=== PATIENT | male | born 1940 | race Caucasian/White ===

== ENCOUNTER 2017-01-02 10:58 | Outpatient (CLI) | payer MEDICARE, BC ==
[~2017-01-02] VITALS: Ht 175.3 cm; Wt 75.0 kg
--- NOTE | ~2017-01-02 | HEMODYNAMI ---
PATIENT:DANICA OWENS MEDICAL RECORD: [id number] : 36 LOCATION:D.CAT ADMISSION DATE: 01/02/17 Generatedon:01/02/201713:28 Patient name: DANICA OWENS Patient #: [id number] SSN: : 1940 Date of study: 01/02/2017 Page: Of Hemodynamic Procedure Report Patient Data Patient Demographics Procedure consent was obtained First Name: DANICA Gender: Male Last Name: ROMAN : 1940 Middle Initial: R Age: 76 year(s) Patient #: [id number] Race: Unknown Additional ID: [id number] Contact details [address]: [address] [place] [address] State: [place] City: [place] Zip code: [address] Admission Admission Data Admission Date: 01/02/2017 Admission Time: 10:58 Procedure Procedure Types Cath Procedure Miscellaneous Procedures Moderate Sedation up to 15 minutes Peripheral Cath Diagnostic Procedure Abd/Extremity Aortagram Procedure Description Procedure Date Procedure Date: 01/02/2017 Procedure Start Time: 13:12 Procedure End Time: 13:28 Procedure Staff Name Function Bladimir Herndon MD Performing Physician Victor Hugo Oreilly RT Scrub Nery Marcos RN Nurse Vick Avitia RT Monitor Procedure Data Cath Procedure Fluoroscopy Diagnostic fluoroscopy Total fluoroscopy Time: 2.1 time: 2.1 min min Diagnostic fluoroscopy Total fluoroscopy dose: 256 dose: 256 mGy mGy Contrast Material Contrast Material Type Amount (ml) Isovue 300 90 Entry Location Entry Primary Successful Side Size Upsize Upsize Entry Closure Succes sful Closure Location (Fr) 1 (Fr) 2 (Fr) Remarks Device Remarks Femoral Right 5 Fr Exoseal artery Estimated blood loss: 10 ml Diagnostic catheters Device Type Used For End Catheter Placement Diagnostic Infinity 5Fr Procedure Pigtail catheter Procedure Complications No complications Procedure Medications Medication Administration Route Dosage Oxygen NC 2 l/min Heparin Flush Bag added to field 2 bags (1000units/500ml NS) Lidocaine 2% added to field 20 Versed I.V. 1 mg Fentanyl I.V. 50 mcg Versed I.V. 0.5 mg Fentanyl I.V. 25 mcg Versed I.V. 0.5 mg Fentanyl I.V. 25 mcg Hemodynamics Rest Heart Rate: 63 (bpm) Snapshots Pre Cath Intra NCS Post Cath Vital Signs Time Heart Resp SPO2 NIBP (mmHg) Rhythm Pain Sedation Rate (ipm) (%) Status Level (bpm) 12:54:28 59 14 98 131/84(115) SB 0 (11) 10(A) , No pain 12:59:27 60 15 98 Measuring SB 0 (11) 10(A) , No pain 12:59:35 57 16 98 162/90(144) SB 0 (11) 10(A) , No pain 13:03:47 57 14 98 144/84(128) SB 0 (11) 10(A) , No pain 13:07:59 61 14 98 124/84(109) SB 0 (11) 10(A) , No pain 13:12:07 57 16 99 129/81(115) SB 0 (11) 9(A) , No pain 13:16:15 70 16 96 139/87(122) SB 0 (11) 9(A) , No pain 13:20:31 60 19 97 129/70(104) SB 0 (11) 9(A) , No pain 13:23:21 59 17 98 141/82(120) SB 0 (11) 9(A) , No pain 13:27:35 60 10 98 132/80(110) SB 0 (11) 9(A) , No pain Medications Time Medication Route Dose Verified Delivered Reason Notes Effec tiveness by by 12:53:44 Oxygen NC 2 Bladimir Nery Per l/min Yanick Marcos RN physician 12:53:52 Heparin Flush added 2 Bladimir Bladimir used for Bag to bags Yanick Herndon MD procedure (1000units/500ml field NS) 12:53:59 Lidocaine 2% added 20ml Bladimir Bladimir used for to vial Yanick Herndon MD procedure field 13:04:10 Versed I.V. 1 mg Bladimir Nery for Yanick Marcos RN sedation 13:04:17 Fentanyl I.V. 50 Bladimir Nery for mcg Yanick Marcos RN sedation 13:06:32 Versed I.V. 0.5 Bladimir Nery for mg Yanick Marcos RN sedation 13:06:40 Fentanyl I.V. 25 Bladimir Nery for mcg Yanick Marcos RN sedation 13:08:54 Versed I.V. 0.5 Bladimir Nery for mg Yanick Marcos RN sedation 13:09:00 Fentanyl I.V. 25 Bladimir Nery for mcg Yanick Marcos RN sedation Procedure Log Time Note 12:29:49 ACC Patient presents with No angina; no symptoms CCS Anginal Class 2--Slight limitation of ordinary activity. 12:29:58 Diagnostic Cath status Elective 12:30:04 Victor Hugo Oreilly RT(R) sent for patient. Start room use. 12:30:07 Time tracking: Regular hours 12:30:10 Plan of Care:Hemodynamics will remain stable., Cardiac rhythm will remain stable., Comfort level will be maintained., Respiratory function will remain adequate., Patient/ family verbilizes understanding of procedure., Procedure tolerated without complication., Recovers from procedure without complications.. 12:46:46 Patient received from Pre/Post Procedure Room to [facility] 2 Alert and oriented. Tansferred to table in Supine position. 12:46:47 Warm blankets applied, and jose luis hugger turned on for patient comfort. 12:46:47 Correct patient and procedure confirmed by team. 12:46:48 Signed procedure consent form obtained from patient. 12:46:49 ECG and BP/O2 sat monitors applied to patient. 12:53:34 Vital chart was started 12:53:44 Oxygen 2 l/min NC was administered by Nery Marcos RN; Per physician; 12:53:52 Heparin Flush Bag (1000units/500ml NS) 2 bags added to field was administered by Bladimir Herndon MD; used for procedure; 12:53:59 Lidocaine 2% 20ml vial added to field was administered by Bladimir Herndon MD; used for procedure; 13:00:35 Baseline sample Acquired. 13:00:40 Rhythm: sinus rhythm 13:00:42 Full Disclosure recording started 13:00:45 H&P Date Dictated: 01/02/2017 New H&P dictated by physician.. 13:00:47 Pre-procedure instructions explained to patient. 13:00:48 Pre-op teaching completed and patient verbalized understanding. 13:00:49 Family in waiting room. 13:00:51 Patient NPO since Midnight. 13:00:54 Is the patient allergic to Iodine/contrast media? No. 13:00:59 Is patient on blood thinner?No 13:01:06 Previous problem with sedation/anesthesia? No ? 13:01:12 Patient diabetic? Yes. 13:01:13 If diabetic: On Metformin? Yes 13:01:14 If on Metformin: Last Dose? 01/01/2017 13:01:16 Snore? Yes 13:01:17 Sleep apnea? Yes 13:01:25 Deviated septum? No 13:01:27 Opens mouth fully? Yes 13:01:28 Sticks out tongue? Yes 13:01:30 Airway obstruction? No ? 13:01:31 Dentures? No ? 13:01:34 Pre procedure: right dorsailis pedis pulse 1+ Palpable, but thready & weak; easily obliterated 13:01:37 Patient pain scale 0/10 ?. 13:01:42 IV patent on arrival in right forearm with 0.9% NaCl at [facility]. 13:01:53 Lab results completed and on chart. 13:01:56 Right groin area was prepped with chlora-prep and draped in sterile fashion 13:01:57 Alarms reviewed by R. N. 13:01:57 Sharps counted by scrub and verified by R.N. 13:02:07 Use device set Femoral Dx 13:02:08 Tegaderm 4 x 4 opened to sterile field. 13:02:10 Acist Hand Control opened to sterile field. 13:02:10 Acist Manifold opened to sterile field. 13:02:11 Acist Syringe opened to sterile field. 13:02:12 Bag Decanter opened to sterile field. 13:02:12 Medline Cath Pack opened to sterile field. 13:02:13 Terumo 5Fr [place] Sheath opened to sterile field. 13:02:13 St Jas 260cm J .035 wire opened to sterile field. 13:03:52 --------ALL STOP TIME OUT------ 13:03:53 Final Timeout: patient, procedure, and site verified with staff and physician. All members of the team are in agreement. 13:03:55 Right groin site verified by team. 13:03:58 Physical assessment completed. ASA score P 2 - A patient with mild systemic disease as per Bladimir Herndon MD. 13:04:02 Sedation plan: IV Moderate Sedation Versed, Fentanyl 13:04:10 Versed 1 mg I.V. was administered by Nery Marcos RN; for sedation; 13:04:17 Fentanyl 50 mcg I.V. was administered by Nery Marcos RN; for sedation; 13:04:56 Zero performed for pressure channel P1 13:06:32 Versed 0.5 mg I.V. was administered by Nery Marcos RN; for sedation; 13:06:40 Fentanyl 25 mcg I.V. was administered by Nery Marcos RN; for sedation; 13:08:54 Versed 0.5 mg I.V. was administered by Nery Marcos RN; for sedation; 13:09:00 Fentanyl 25 mcg I.V. was administered by Nery Mracos RN; for sedation; 13:12:06 Procedure started. 13:12:13 Local anesthetic to right femoral artery with Lidocaine 2% by Bladimir Herndon MD.INITIAL ACCESS ONLY 13:14:53 A 5 Fr sheath was inserted into the Right Femoral artery 13:15:29 A Diagnostic Infinity 5Fr Pigtail catheter was advanced over the wire and used for Procedure. 13:16:02 Abdominal Aortagram was performed. 13:17:02 ABBOTT and PELON views of the Abdominal Aorta obtained. 13:17:27 Injector settings: Ml/sec: 10, Volume: 20, 13:21:05 Catheter removed. 13:21:14 Cordis 5Fr Exoseal opened to sterile field. 13:21:37 Sheath removed intact; hemostasis achieved with Exoseal to the Right Femoral artery. 13:21:39 Procedure ended.(Physican Out) 13:21:52 Fluoroscopy time 02.10 minutes. 13::55 Fluoroscopy dose: 256 mGy 13:21:55 Flurop Dose total: 256 13:21:59 Contrast amount:Isovue 300 90ml. 13:22:00 Sharps counted by scrub and verified by R.N. 13:22:02 Insertion/operative site no bleeding no hematoma. 13:22:05 Post-op/insertion site Right Femoral artery dressed using a 4 x 4 and Tegaderm. 13:22:07 Post Procedure Pulses reassessed and unchanged 13:22:10 Post-procedure physical assessment completed. ASA score P 2 - A patient with mild systemic disease as per Bladimir Herndon MD. 13:22:12 Post procedure rhythm: unchanged. 13:22:15 Estimated blood loss: 10 ml 13:22:22 Post procedure instruction explained to patient.Patient verbalizes understanding. 13:22:22 Patient needs reinforcement of post procedure teaching. 13:22:35 Procedure type changed to Cath procedure, Miscellaneous Procedures, Moderate Sedation up to 15 minutes, Peripheral Cath Diagnostic Procedure, Abd/Extremity, Aortagram 13:22:42 Procedure Complication : No complications 13:23:41 Procedure and supply charges have been captured, reviewed, submitted and are correct. 13:28:09 Vital chart was stopped 13:28:10 See physician's report for complete and final results. 13:28:13 Report given to Pre/Post Procedure Room. 13:28:23 Patient transfered to Pre/Post Procedure Room with Stretcher. 13:28:26 Procedure ended. 13:28:26 Full Disclosure recording stopped 13:28:30 End room use (Document Last) Device Usage Item Name Manufacture Quantity Catalog Hospital Part Current Minimal Lo t# / Number Charge Number Stock Stock Serial# Code Tegaderm 4 3M 1 [id number] 186769 [id number] 5 x 4 Acist Hand Acist 1 43764 035772 267904 522168 5 Control [employer] Inc Acist Acist 1 75474 718897 436942 865967 5 Manifold [employer] Inc Acist Acist 1 23603 327509 001817 909586 20 Syringe Medical Systems Inc Bag Microtek 1 2001S 026728 13270 229665 5 Decanter [employer] Medline Cardinal 1 [id number] 993247 40060 248348 5 Cath Pack Health Terumo 5Fr Terumo 1 [id number] 208454 788500 514450 [address] Jas 1 318704 445965 870482 076732 30 260cm J .035 wire Diagnostic Cardinal 1 [id number] 568798 154647 876837 5 [employer] 5Fr Pigtail catheter Cordis 5Fr Cardinal 1 EX500 581019 877932 722840 10 Godigex Signature Audit [place] Stage Time Signature Unsigned Intra-Procedure 01/02/2017 Vick Avitia 1:28:54 PM RT(R) Signatures Monitor : Vick Avitia RT Signature : Date : Time : [place] [id number] [place] [id number]
[~2017-01-02 10:58] MED LIST: ALEVE220 MG PO; ASPIRIN325 MG PO; BIOTIN5 MG PO; CRESTOR5 MG PO; DYAZIDE 37.5/251 CAP PO; DYRENIUM100 MG PO; ECOTRIN325 MG PO; GLUCOPHAGE500 MG PO; HYDROCODONE-APA1 TAB PO; LISINOPRIL10 MG PO; NEURONTIN 300300 MG PO; NORVASC5 MG PO; PROTONIX40 MG PO; TENORMIN100 MG PO
[2017-01-02] MEDS ORDERED: LOSARTAN POTASS25 MG PO (11:17)
[2017-01-02] MEDS ORDERED: TRIAMTERENE-HCT1 TA1 PO (11:17)
[2017-01-02] MEDS ORDERED: ZANAFLEX4 MG PO (11:18)
[2017-01-02] MEDS ORDERED: GLUCOPHAGE1000 MG PO (11:19)
[2017-01-02] MEDS ORDERED: ULTRAM50 MG PO (11:19)
[2017-01-02] MEDS ORDERED: TENORMIN50 MG PO (11:20)
[2017-01-02 11:27] VITALS: BP 146/76; Ht 175.3 cm; Wt 75.0 kg
[2017-01-02 11:45] LABS: BASOPHILS 0.2 % (0-2); EOSINOPHILS 0.3 % (0-7); HEMATOCRIT 44.8 % (42.0-54.0); IMMATURE GRANULOCYTES 0.2 % (0-5); LYMPHOCYTES 11.7 % (15-50); MCH 33.3 pg (26.0-34.0); MCHC 33.5 g/dL (31.0-37.0); MCV 99.3 fL (80.0-100.0); MEAN PLATELET VOLUME 9.4 fL (7.4-10.4); MONOCYTES 4.3 % (2-11); NEUTROPHILS 83.3 % (40-80); RBC 4.51 10x6/uL (4.20-6.10); RDW 12.3 % (11.5-14.5); WBC 8.9 10x3/uL (4.8-10.8)
[2017-01-02 11:48] LABS: PLATELET COUNT 234 10x3/uL (130-400)
[2017-01-02 12:20] LABS: ANION GAP 12.5 mmol/L (8-16); CALCIUM 9.6 mg/dL (8.5-10.1); CARBON DIOXIDE 27.4 mmol/L (21.0-32.0); CREATININE - SERUM 1.1 mg/dL (0.6-1.3); POTASSIUM - SERUM 3.9 mmol/L (3.5-5.1)
--- NOTE | 2017-01-02 13:58 | NUR ---
1355 LYING FLAT, ROOM AIR WITH NO RESP DISTRESS. SBRADY RATE 58 WNO C/O CHEST PAIN. PULSES PALP X 4. R GROIN 5F EXOSEAL C/D/I WITH NO HEMATOMA OR BLEEDING. AT BEDSIDE.
--- NOTE | 2017-01-02 15:30 | NUR ---
HOB ELEVATED 30 DEGREES. SANDWICH TRAY GIVEN. NO BLEEDING NOTED TO RIGHT GROIN.
--- NOTE | 2017-01-02 15:53 | NUR ---
RIGHT FA PIV D/C'D WITH CATHETER INTACT, BAND AID TO SITE. UP TO BEDSIDE TO GET DRESSED.
--- NOTE | 2017-01-02 15:57 | NUR ---
UP TO RESTROOM TO VOID.
--- NOTE | 2017-01-02 16:05 | NUR ---
DISCHARGE INSTRUCTIONS GIVEN, VERBALIZED UNDERSTANDING.
--- NOTE | 2017-01-02 16:10 | NUR ---
TAKEN OUT VIA WHEELCHAIR BY CATH TYRE RETREADER. LEFT FACILITY WITH FAMILY MEMBER AND ALL PERSONAL BELONGINGS.
--- NOTE | 2017-01-03 06:18 | OP ---
PATIENT NAME: DANICA OWENS MEDICAL RECORD: [id number] :36 LOCATION:D.CAT ADMISSION DATE: SURGEON: ZANE TAN M.D. DATE OF OPERATION: 01/02/2017 REFERRING PHYSICIAN: Gurjit Barragan MD. PROCEDURE PERFORMED: Abdominal aortogram. INDICATION: A 76-year-old gentleman recently seen in clinic, with x-ray revealing abdominal aortic aneurysm. EQUIPMENT USED: A 5-Jordanian pigtail catheter. TECHNIQUE: A 5-Jordanian sheath was inserted in retrograde fashion in the right common femoral artery. Next, a pigtail catheter was advanced to the level of T12. Power injection was performed to visualize the distal aorta. Next, the catheter was pulled down to the level of bifurcation. Prior injection was then performed to visualize the aortic bifurcation. FINDINGS: The distal aorta is of normal caliber. 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 Each kidney received a single arterial supply. There is no evidence of renal artery stenosis. In the infrarenal position and above the bifurcation, the aorta is somewhat ectatic. It is aneurysmal, but no more than 3.5 cm in diameter. Flow was slow to this area. Right iliac artery has been stented. There appears to be focal 70% in-stent restenosis. Left common iliac artery has been stented as well. There appears to be a longer 70% to 80% restenosis seen as well. IMPRESSION: 1. Abdominal aortogram reveals an infrarenal abdominal aortic aneurysm, does not appear to be more than 3.5 cm in diameter. 2. 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 RECOMMENDATIONS: I will review the situation with the patient. If he is having any symptoms of hip claudication, consider RARE/ENDANGERED SPECIES SPECIALIST to these iliac stents. TRANSINT:[id number] Voice Confirmation ID: [id number] DOCUMENT ID: [id number] ZANE TAN M.D. at 0618 CC: [id number] DICTATION DATE: 01/02/17 133 BERRY PLANTER: 01/02/172054 DEP CLI 01/02/17 [place] [id number]
== END 2017-01-02 16:10 | disposition home or self-care (01) ==
LOC: D.CATH 10:58
PROVIDERS: Internal Medicine Cardiovascular Disease
DX: I71.4 Abdominal aortic aneurysm, without rupture (principal); T82.856A Stenosis of peripheral vascular stent, initial encounter

== ENCOUNTER 2017-03-11 08:47 | Emergency (ER) | payer MEDICARE, BC ==
[2017-01-02 11:27] VITALS: BMI 24.4
[~2017-03-11 08:47] MED LIST changes: +GLUCOPHAGE1000 MG PO; +LOSARTAN POTASS25 MG PO; +TENORMIN50 MG PO; +TRIAMTERENE-HCT1 TA1 PO; +ULTRAM50 MG PO; +ZANAFLEX4 MG PO
== END 2017-03-11 10:08 | disposition home or self-care (01) ==
LOC: D.ER 08:47
DX: T78.3XXA Angioneurotic edema, initial encounter (principal); E11.9 Type 2 diabetes mellitus without complications; I10 Essential (primary) hypertension; R13.10 Dysphagia, unspecified

== ENCOUNTER → 2017-09-23 13:47 | Outpatient (CLI) | payer MEDICARE, BC ==
[2017-01-02 11:27] VITALS: BMI 24.4
== END | disposition home or self-care (01) ==
LOC: D.RT 13:47
DX: J44.9 Chronic obstructive pulmonary disease, unspecified (principal)

== ENCOUNTER → 2018-02-14 13:09 | Outpatient (CLI) | payer MEDICARE, BC ==
[2017-01-02 11:27] VITALS: BMI 24.4
[~2018-02-14 13:09] MED LIST changes: +FOLIC ACID1 MG PO; +FUROSEMIDE20 MG PO
== END | disposition home or self-care (01) ==
LOC: D.CT 13:09
DX: R04.2 Hemoptysis (principal)

== ENCOUNTER 2018-02-20 06:34 | Outpatient (CLI) | payer MEDICARE, BC ==
[~2018-02-20] VITALS: Ht 175.3 cm; Wt 72.7 kg
[~2018-02-20 06:34] MED LIST changes: -FOLIC ACID1 MG PO; -FUROSEMIDE20 MG PO
[2018-02-20 06:53] LABS: BASOPHILS 0.3 % (0-2); EOSINOPHILS 4.2 % (0-7); HEMATOCRIT 42.3 % (42.0-54.0); HEMOGLOBIN 14.4 g/dL (13.5-17.5); IMMATURE GRANULOCYTES 0.2 % (0-5); LYMPHOCYTES 13.4 % (15-50); MCH 32.7 pg (26.0-34.0); MCV 96.1 fL (80.0-100.0); MEAN PLATELET VOLUME 8.7 fL (7.4-10.4); MONOCYTES 9.7 % (2-11); NEUTROPHILS 72.2 % (40-80); PLATELET COUNT 251 10x3/uL (130-400); RDW 12.7 % (11.5-14.5); WBC 8.8 10x3/uL (4.8-10.8)
[2018-02-20 07:14] LABS: APTT 30.2 SECONDS (22.8-39.4)
[2018-02-20 07:17] LABS: ANION GAP 10.9 mmol/L (8-16); CALCIUM 9.4 mg/dL (8.5-10.1); CARBON DIOXIDE 30.9 mmol/L (21.0-32.0); CREATININE - SERUM 1.1 mg/dL (0.6-1.3); POTASSIUM - SERUM 3.8 mmol/L (3.5-5.1)
[2018-02-20 07:24] LABS: INR 1.07 (0.85-1.17); PROTIME 13.5 SECONDS (11.6-15.0)
[2018-02-20 08:14] VITALS: BP 147/92; Ht 175.3 cm; Wt 72.7 kg
== END 2018-02-20 13:45 | disposition home or self-care (01) ==
LOC: D.SP 06:34 → D.CT 09:00 → D.SP 13:45
PROVIDERS: Radiology Vascular & Interventional Radiology
DX: C34.91 Malignant neoplasm of unspecified part of right bronchus or lung (principal); Z01.812 Encounter for preprocedural laboratory examination

== ENCOUNTER 2018-03-21 13:47 | Inpatient (IN) | payer MEDICARE, BC ==
[~2018-03-21] VITALS: Ht 175.3 cm; Wt 72.6 kg
--- NOTE | ~2018-03-21 | OP ---
PATIENT NAME: DANICA OWENS MEDICAL RECORD: [id number] :38 LOCATION:D. D.2122 ADMISSION DATE:03/21/18 SURGEON: CARISSA HER MD DATE OF OPERATION: 03/22/2018 PREOPERATIVE DIAGNOSIS: Complete heart block. POSTOPERATIVE DIAGNOSIS: Complete heart block. PROCEDURE: Creation of pacemaker pocket and advancement of pacemaker leads into the central venous system and then placement of the pacemaker generator in the pocket and closure. CO-SURGEON: Raji Wheatley MD, indigo mixer SURGEON: Carissa Her MD ANESTHESIA: Local with IV sedation. COMPLICATIONS: None. This was a co-surgeon case. Due to the complexity of the operation, it was necessary to have 2 attending surgeons present, a indigo mixer and a general surgeon. DESCRIPTION OF PROCEDURE: The patient was conveyed to the cardiac catheterization laboratory on 03/22/2018. IV sedation was induced by the nursing staff under my direction. The left chest was sterilely prepped and draped. A local anesthetic was used to infiltrate the skin and subcutaneous tissues inferior to the left clavicle. A transverse incision was accomplished inferior to the left clavicle. A subcutaneous pocket was fashioned bluntly in a caudad direction. I had an program assistant pull down on the left arm toward the foot. Through the pacemaker pocket, I was able to advance a needle under the left clavicle, utilizing an antegrade approach to the subclavian vein. This was visualized under fluoroscopy. A guidewire passed easily. This was visualized under fluoroscopy as well. A 9-Scottish dilator sheath was advanced over the wire. This was visualized under fluoroscopic guidance. The dilator was removed. Through the 9-Scottish sheath, the ventricular lead was advanced. Dr. Raji Wheatley positioned the ventricular lead. Appropriate thresholds were obtained. I then sutured the ventricular lead down to the underlying pectoralis fascia with 2-0 TiCron times 2. Over the secondary wire, a 7-Scottish dilator sheath was advanced. This was visualized under fluoroscopic guidance. The dilator and wire were removed. Through the sheath, an atrial lead was advanced. The Peel-Away sheath was then removed. Dr. Raji Wheatley then positioned the atrial lead. Appropriate thresholds were obtained. I then sutured the atrial lead down to the underlying pectoralis fascia with 2-0 TiCron times 2. The pacemaker generator was then brought onto the sterile field. I confirmed with the pacemaker customer loyalty representative the serial number on the ventricular lead. It was then placed within the ventricular dock of the pacemaker and tightened down with the wrench. I tried to dislodge the ventricular lead and was unable to do so. I then confirmed with pacemaker customer loyalty representative the serial number on the atrial lead. This was placed in the atrial dock of the pacemaker generator and then tightened down with the wrench. I tried to dislodge the atrial lead and was unable to do so. The pacemaker generator and wires were then placed in the pacemaker pocket. Care was paid to place the wires posterior to the generator. OPERATIVE REPORT [id number] ROMANDANICA Malka The pacemaker was then sutured to the underlying pectoralis fascia with 2-0 TiCron times 1. I irrigated the pacemaker pocket. There was no bleeding even at low pressure of 8. The deep adipose tissue was closed with interrupted 3-0 Vicryls. The subcutaneous adipose tissue was closed with interrupted 3-0 Vicryls. The skin was approximated with a running intracuticular 3-0 Vicryl. A sterile dressing was applied. We then examined the pacemaker generator and the wires again. The wires appeared to have been well placed and had not been dislodged. The pacemaker generator appeared to be in good position. There was no radiographic evidence of complication. The patient was then conveyed back to their room. I will see the patient on a p.r.n. basis. There is no need for the patient to follow up with me unless the patient develops a complication related to this operative procedure. My involvement in the procedure was creation of the pacemaker pocket, vascular access into the central venous system, placement of the pacemaker generator into the pocket and then closure. TRANSINT:[id number] Voice Confirmation ID: [id number] DOCUMENT ID: [id number] CARISSA HER MD at 1024 CC: LIDIA WEBB MD and RAJI LEONARDO MD [id number] DICTATION DATE: 03/22/181847 GENERATOR ASSEMBLER: 03/23/18 0140 DIS IN 03/23/18 [facility] [address] [place] [address]
--- NOTE | ~2018-03-21 | HEMODYNAMI ---
PATIENT:DANICA OWENS MEDICAL RECORD: [id number] : 36 LOCATION:[address]# [id number] ADMISSION DATE: 03/21/18 Generatedon:03/22/201811:10 Patient name: DANICA OWENS Patient #: [id number] SSN: : 1940 Date of study: 03/22/2018 Page: Of Hemodynamic Procedure Report Patient Data Patient Demographics Procedure consent was obtained First Name: DANICA Gender: Male Last Name: ROMAN : 1940 [facility] Initial: R Age: 77 year(s) Patient #: [id number] Race: Unknown Additional ID: [id number] Contact details Address: [address] [place] [address] State: [place] City: [place] Zip code: [address] Past Medical History Allergies Allergen Reaction Date Comments Reported Other allergy 03/22/2018 Iodinated Contrast. PCN Admission Admission Data Admission Date: 03/21/2018 Admission Time: 17:09 Admit Source: Other Room #: D.2122 Lab Results Lab Result Date: 03/22/2018 Lab Result Time: 5:05 Biochemistry Name Units Result Min Max BUN mg/dl 18 --(---*)-- 7 18 Creatinine mg/dl 0.8 --(-*--)-- 0.6 1.3 CBC Name Units Result Min Max Hematocrit % 39.6 -*(----)-- 42 54 Hemoglobin g/dl 13.5 --(*---)-- 13.5 17.5 Procedure Procedure Types Cath Procedure Diagnostic Procedure PPM/ICD PPM Dual Implant Sedation Charges Moderate Sedation up to 15 minutes Procedure Description Procedure Date Procedure Date: 03/22/2018 Procedure Start Time: 10:30 Procedure Staff Name Function Raji Madsen MD Performing Physician Milton Freire MD Assisting physician Ronaldo Jhaveri RT Monitor Vick Avitia RT Scrub John Hogan RN Nurse Procedure Data Cath Procedure Fluoroscopy Diagnostic fluoroscopy Total fluoroscopy Time: 2.4 time: 2.4 min min Diagnostic fluoroscopy Total fluoroscopy dose: dose: 84.66 mGy 84.66 mGy Contrast Material Contrast Material Type Amount (ml) Isovue 370 0 Estimated blood loss: 5 ml Procedure Complications No complications Procedure Medications Medication Administration Route Dosage 0.9% NaCl I.V. 100 ml/hr Oxygen etCO2 Nasal cannula 3 l/min Lidocaine 1% with added to field 20 ml Epi Bupivacaine 0.5% added to field 20 ml Vancomycin I.V.P.B 1 g Versed I.V. 1 mg Fentanyl I.V. 50 mcg Vancomycin Topical 1 g Irrigation Versed I.V. 1 mg Fentanyl I.V. 50 mcg Hemodynamics Rest HGB: 13.5 (g/dl) Heart Rate: 36 (bpm) Snapshots Pre Cath Intra NCS Post Cath Vital Signs Time Heart Resp SPO2 etCO2 NIBP (mmHg) Rhythm Pain Sedation Rate (ipm) (%) (mmHg) Status Level (bpm) 10:11:25 36 27 92 18 176/73(139) 3 0 (11) 10(A) degree , No Heart pain Block 10:15:56 37 30 95 18 166/75(140) 3 0 (11) 10(A) degree , No Heart pain Block 10:20:26 39 18 96 8.2 151/70(122) 3 0 (11) 10(A) degree , No Heart pain Block 10:26:06 36 23 91 21 135/59(110) 3 0 (11) 10(A) degree , No Heart pain Block 10:30:26 35 23 95 21.8 129/64(94) 3 0 (11) 9(A) degree , No Heart pain Block 10:35:54 36 16 94 22.5 149/72(124) 3 0 (11) 9(A) degree , No Heart pain Block 10:46:29 29 22 93 19.5 140/63(115) 3 0 (11) 10(A) degree , No Heart pain Block 10:50:39 50 20 95 8.2 127/85(107) 3 0 (11) 10(A) degree , No Heart pain Block 10:54:49 79 24 95 23.3 134/81(118) Paced 0 (11) 10(A) , No pain 10:59:03 73 17 98 20.3 153/77(121) Paced 0 (11) 10(A) , No pain 11:03:21 78 18 95 8.2 148/82(120) Paced 0 (11) 10(A) , No pain 11:07:35 80 19 95 19.5 136/81(123) Paced 0 (11) 10(A) , No pain Medications Time Medication Route Dose Verified Delivered Reason Notes Effectiv eness by by 10:20:28 0.9% NaCl I.V. 100 John John Per ml/hr Lorigan Lorigan physician RN RN 10:20:46 Oxygen etCO2 3 John John Per Nasal l/min Lorigan Lorigan physician cannula RN RN 10:21:04 Lidocaine added 20 ml John John for local 1% with Epi to Lorigan Lorigan anesthetic field RN RN 10:21:21 Bupivacaine added 20 ml John John for local 0.5% to Lorigan Lorigan anesthetic field RN RN 10:22:16 Vancomycin I.V.P.B 1 g John John Per Lorigan Lorigan physician RN RN 10:27:02 Versed I.V. 1 mg John John for Lorigan Lorigan sedation RN RN 10:27:10 Fentanyl I.V. 50 John John for mcg Lorigan Lorigan sedation RN RN 10:28:33 Vancomycin Topical 1 g John John used for Irrigation Lorigan Lorigan associate director of biostatistics RN 10:34:53 Versed I.V. 1 mg John John for Lorigan Lorigan sedation RN RN 10:35:00 Fentanyl I.V. 50 John John for mcg Lorigan Lorigan sedation RN craniologist Log Time Note 9:45:17 Vick BRODERICK(R) sent for patient. Start room use. 9:55:55 Informed consent obtained and on chart 9:55:58 Admit Source: Other 9:57:15 Diagnostic Cath status Elective 9:57:24 Time tracking: Regular hours (M-F 7:00 - 5:00) 9:57:28 Plan of Care:Hemodynamics will remain stable., Cardiac rhythm will remain stable., Comfort level will be maintained., Respiratory function will remain adequate., Patient/ family verbilizes understanding of procedure., Procedure tolerated without complication., Recovers from procedure without complications.. 9:59:02 Patient received from Med II to [facility] 3 Alert and oriented. Tansferred to table in Supine position. 9:59:03 Warm blankets applied, and jose luis hugger turned on for patient comfort. 9:59:04 Correct patient and procedure confirmed by team. 9:59:04 ECG and BP/O2 sat monitors applied to patient. 9:59:06 Pre-procedure instructions explained to patient. 9:59:06 Pre-op teaching completed and patient verbalized understanding. 9:59:09 Family in patients room. 9:59:11 Patient NPO since Midnight. 10:10:05 Baseline sample Acquired. 10:10:05 Vital chart was started 10:10:07 Rhythm: sinus bradycardia, 3rd degree heart block 10:10:10 Full Disclosure recording started 10:10:43 H&P Date Dictated: 03/21/2018 Within 30 days and on chart.. 10:11:24 Patient allergic to Other allergyIodinated Contrast. PCN 10:11:25 Is the patient allergic to Iodine/contrast media? No. 10:12:05 Is patient on blood thinner?No 10:12:06 Patient diabetic? Yes. 10:12:07 If diabetic: On Metformin? Yes 10:12:12 Previous problem with sedation/anesthesia? No ? 10:12:14 Snore? Yes 10:12:15 Sleep apnea? No 10:12:16 Deviated septum? No 10:12:20 Opens mouth fully? Yes 10:12:21 Sticks out tongue? Yes 10:12:24 Airway obstruction? Yes COPD 10:12:34 Dentures? No ? 10:12:39 Patient pain scale 0/10 ?. 10:12:57 IV patent on arrival in right forearm with 0.9% NaCl at KVO. 10:13:23 Lab Result : BUN 18 mg/dl 10:13:23 Lab Result : Creatinine 0.8 mg/dl 10:13:23 Lab Result : Hemoglobin 13.5 g/dl 10:13:23 Lab Result : Hematocrit 39.6 % 10:13:25 Lab results completed and on chart. 10:13:31 Left chest area was prepped with chlora-prep and draped in sterile fashion 10:13:36 Use device set MANNY PPM 10:13:41 2-0 Ticron Multipack ([id number]) opened to sterile field. 10:13:42 5-0 Monocryl PS2 [id number] opened to sterile field. 10:13:49 3-0 Vicryl Multipack [id number] opened to sterile field. 10:13:54 Cautery Tip Food Preparation Supervisor opened to sterile field. 10:13:55 Cautery Pushbutton Pencil opened to sterile field. 10:13:57 Mepilex Dressing ([id number]) opened to sterile field. 10:13:58 Immobilizer Extra Large opened to sterile field. 10:14:11 Medtronic Advisa MRI PPM Dual Generator [id number] opened to sterile field. 10:14:35 Medtronic 4074-52 PPM Lead opened to sterile field. 10:14:36 Medtronic 4574-45 PPM Lead opened to sterile field. 10:14:44 Alarms reviewed by R. N. 10:20:28 0.9% NaCl 100 ml/hr I.V. was administered by John Hogan RN; Per physician; 10:20:38 Medtronic hvac sales representative ZOYA LEGER present for procedure. 10:20:46 Oxygen 3 l/min etCO2 Nasal cannula was administered by John Hogan RN; Per physician; 10:20:51 Pre sharps counted by scrub and verified by RN: Sutures: 20; Sponges: 5; Stick needles: 3; Skin needles: 2; Blade: 1; Cautery: 1 10:20:53 Grounding pad site Right thigh. 10:20:55 Grounding pad site free from injury. 10:21:00 Sharps counted by scrub and verified by R.N. 10:21:02 Physician paged 10:21:04 Lidocaine 1% with Epi 20 ml added to field was administered by John Hogan RN; for local anesthetic; 10:21:21 Bupivacaine 0.5% 20 ml added to field was administered by John Hogan RN; for local anesthetic; 10:22:16 Vancomycin 1 g I.V.P.B was administered by John Hogan RN; Per physician; 10:24:05 Physician arrived 10:24:06 --------ALL STOP TIME OUT------ 10:24:06 Final Timeout: patient, procedure, and site verified with staff and physician. All members of the team are in agreement. 10:24:12 Left chest site verified by team. 10:24:15 Physical assessment completed. ASA score P 2 - A patient with mild systemic disease as per Raji Madsen MD. 10:24:18 Sedation plan: IV Moderate Sedation Medication:Versed, Fentanyl 10:27:02 Versed 1 mg I.V. was administered by John Hogan RN; for sedation; 10:27:10 Fentanyl 50 mcg I.V. was administered by John Hogan RN; for sedation; 10:28:33 Vancomycin Irrigation 1 g Topical was administered by John Hogan RN; used for procedure; 10:30:34 Lidocaine 1% w/epi and Bupivacaine 0.5% was administered to left subclavicular area by Milton Freire MD . 10:32:28 Incision made to left subclavicular area. 10:34:05 Generator pocket made/opened. 10:34:53 Versed 1 mg I.V. was administered by John Hogan RN; for sedation; 10:35:00 Fentanyl 50 mcg I.V. was administered by John Hogan RN; for sedation; 10:38:49 Left subclavian vein accessed with 9Fr Peel Away Sheath. 10:38:52 Ventricular lead inserted and advanced. 10:39:16 Ventricular lead positioned. 10:41:17 Ventricular lead tested. 10:41:26 Ventricular lead attachment was completed with 2-0 ticron. 10:44:52 Atrial lead inserted and advanced. 10:45:06 Atrial lead positioned. 10:48:34 Atrial lead tested. 10:49:19 Atrial lead attachment was completed with 2-0 ticron. 10:49:30 Peel-a-way sheath was split and removed. 10:50:47 PPM Dual was attached to lead(s) and inserted into pocket. 10:50:59 Generator was sutured in place with 2-0 ticron. 10:51:01 Device pocket was irrigated with Vancomycin. 10:52:40 Subcutaneous closure was completed with 3-0 vicryl. 10:54:44 2-0 Ticron Multipack ([id number]) opened to sterile field. 10:55:56 Skin closure was completed with 5-0 monocryl. 10:59:27 3-0 Vicryl Single Pack [id number] opened to sterile field. 11:02:04 Parameters-- Generator: Mode: DDDR. Lower Rate: 60bpm. Upper Rate: 130bpm. 11:02:30 Parameters--Atrial P/R Wave: 1.7mV. Current: 0.90mA; Threshold: 0.6V; Impedence: 742OHMS. 11:02:48 Parameters--Ventricular P/R Wave: 4.8mV. Current: 0.40mA; Threshold: 0.5V; Impedence: 1373OHMS. 11:02:52 Lt Chest incision was dressed with Mepilex dressing. 11:03:13 Procedure ended.(Physican Out) 11:06:12 Fluoroscopy time 02.40 minutes. 11:06:17 Fluoroscopy dose: 84.66 mGy 11:06:17 Flurop Dose total: 84.66 11:06:20 Contrast amount:Isovue 370 0ml. 11:06:37 Post sharps counted by scrub and verified by RN: Sutures: 20; Sponges: 5; Stick needles: 3; Skin needles: 2; Blade: 1; Cautery: 1 11:07:11 Insertion/operative site no bleeding no hematoma. 11:07:16 Post-op/insertion site Left Subclavian vein dressed using a Mepilex dressing. 11:07:22 Post left subclavian vein:stable, soft, clean and dry 11:08:07 Estimated blood loss: 5 ml 11:08:08 Post procedure instruction explained to patient.Patient verbalizes understanding. 11:08:09 Patient needs reinforcement of post procedure teaching. 11:08:51 Procedure type changed to Cath procedure, Diagnostic procedure, PPM/ICD, PPM Dual Implant, Sedation Charges, Moderate Sedation up to 15 minutes 11:09:09 Procedure and supply charges have been captured, reviewed, submitted and are correct. 11:09:11 Procedure Complication : No complications 11:09:13 Vital chart was stopped 11:09:14 See physician's report for complete and final results. 11:09:16 Report given to PCU. 11:09:18 Patient transfered to PCU with Stretcher. 11:10:22 End room use (Document Last) Device Usage Item Name Manufacture Quantity Catalog Hospital Part Current Minimal Lot# / Serial# Number Charge Number Stock Stock Code 2-0 Ticron Ethicon 2 [id number] 250246 31823 675215 5 Multipack ([id number]) 5-0 Monocryl Ethicon 1 [id number] [id number] 673552 624577 5 PS2 Y495G 3-0 Vicryl Ethicon 1 [id number] 388502 409000 226346 5 Multipack [id number] Cautery Tip Microtek 1 [id number] 692131 830971 388168 5 Food Preparation Supervisor [employer] Cautery Microtek 1 [id number] 313176 66089 482962 5 Pushbutton Medical Inc. Pencil Mepilex Cardinal 1 142832 715936 025419 681361 5 Dressing Health (646272) Immobilizer Cardinal 1 [id number] 261934 442077 074701 5 Extra Large Health Medtronic Medtronic 1 A2DR01 064143 147140 5 2019-03-15 Advisa MRI SN:[id number] PPM Dual Generator A2DR01 Medtronic Medtronic 1 4074-52 588198 013124 5 2020-02-07 4074-52 PPM SN:[id number] Lead Medtronic Medtronic 1 4574-45 453623 241185 5 2019-12-26 4574-45 PPM SN:[id number] Lead 3-0 Vicryl Ethicon 1 [id number] 445216 910191 734725 5 Single Pack [id number] Signature Audit [place] Stage Time Signature Unsigned Intra-Procedure 03/22/2018 Ronaldo Jhaveri 11:10:04 AM RT(R) Signatures Monitor : Ronaldo Jhaveri RT Signature : Date : Time : [facility] [address] [place] [address]
--- NOTE | ~2018-03-21 | OP ---
PATIENT NAME: DANICA OWENS MEDICAL RECORD: [id number] :36 LOCATION:D.M2 D.2122 ADMISSION DATE:03/21/18 SURGEON: ZACH LEONARDO MD DATE OF OPERATION: 03/22/2018 PROCEDURE: Lead portion of permanent pacemaker placement. SURGEON: Milton Freire MD INDICATION: Complete heart block. DESCRIPTION OF PROCEDURE: After left subclavian was cannulated via modified Seldinger technique via Dr. Freire, first under fluoroscopic guidance, I placed the RV lead in the RV apex without difficulty. After adequate thresholds and R-wave were obtained, I then placed the right atrial lead in the right atrial appendage without difficulty. After adequate P waves and thresholds obtained, the leads were attached to the appropriate poles of the generator and the pocket was closed via Dr. Freire. IMPRESSION: Successful lead portion of permanent pacemaker placement. ESTIMATED BLOOD LOSS: Minimal. DISPOSITION: To the floor, stable. TRANSINT:[id number] Voice Confirmation ID: [id number] DOCUMENT ID: [id number] ZACH LEONARDO MD at 1116 CC: [id number] DICTATION DATE: 03/22/18 1059 FAST FOOD SERVER: 03/22/18 1130 DIS IN 03/23/[address] [address]
--- NOTE | ~2018-03-21 | CN ---
PATIENT NAME:DANICA OWENS MEDICAL RECORD: [id number] : 36 LOCATION:[facility].2122 ADMIT DATE: 03/21/18 ACCOUNT: [id number] CONSULTING PHYSICIAN: ZACH LEONARDO MD REFERRING PHYSICIAN: LIDIA WEBB MD DATE OF CONSULTATION: 03/22/2018 HISTORY OF PRESENT ILLNESS: A 77-year-old gentleman with a known cardiovascular history, status post coronary artery bypass grafting, has a history of lung carcinoma, being seen in [place] to start right-sided radiation from a cardiovascular standpoint, and a history of diabetes, presented with marked fatigue and tiredness, found to be a Mobitz II and a complete heart block. PAST MEDICAL HISTORY: Includes: 1. History of hypertension. 2. Hyperlipidemia. 3. Diabetes mellitus. 4. Lung carcinoma as described above. ALLERGIES: CONTRAST, PENICILLIN. MEDICATIONS: Include Zanaflex 4 mg q.12 hours p.r.n., atenolol 50 every day, losartan 25 every day, aspirin 325 every day, Ultram 50 every day, triamterene HCT 37.5/25 daily, metformin 1 gram b.i.d. SOCIAL HISTORY: Lives here in the [place]. Good family support, is able to take care of his ADLs, although none in the last week or so. REVIEW OF SYSTEMS: The patient reports easy bruising but reports no swollen glands. The patient reports no fever, no night sweats, no significant weight gain, no significant weight loss. No significant exercise tolerance. The patient reports no dry eyes, no irritation, no vision change. Patient reports no difficulty hearing and no ear pain. Patient reports no frequent nose bleeds or nose and sinus problems. Patient reports on arm pain on exertion. No shortness of breath while lying down. No history of heart murmur. Patient reports no cough, no wheezing or coughing up blood. Patient reports no abdominal pain, no vomiting. Normal appetite. No diarrhea and not vomiting blood. No nausea and no constipation. Patient reports no incontinence. No difficulty urinating. No hematuria. No increased frequency. Patient reports no muscle aches. No weakness, no arthralgias, no back pain. No swelling of the extremities. Patient reports no abnormal mole, no jaundice, no rashes. Reports no loss of consciousness. No weakness and no numbness. No seizures, dizziness, or headaches. The patient reports no depression, no sleep disturbance, feeling safe in a relationship and no alcohol abuse. Patient reports on fatigue. Reports no runny nose or sinus pressure. No itching, no hives, and no frequent sneezing. PHYSICAL EXAMINATION: GENERAL: Pleasant gentleman in no acute distress. HEENT: Normocephalic, atraumatic. NECK: No bruits are noted. HEART: Regular, bradycardic, II/ systolic ejection murmur. LUNGS: Good air excursion. ABDOMEN: Soft, nontender. EXTREMITIES: Pulses well preserved, 1+. No edema. CONSULT REPORT [id number] DANICA OWENS IMPRESSION: Complete heart block. PLAN: Permanent pacemaker placement. Obviously, given right-sided radiation in the future, we will plan left-sided pacer. TRANSINT:[id number] Voice Confirmation ID: [id number] DOCUMENT ID: [id number] ZACH LEONARDO MD at 1116 CC: [id number] DICTATION DATE: 03/22/18 1058 GOVERNMENT AFFAIRS SPECIALIST: 03/22/18 1128 DIS IN 03/23/18 [place] [id number] [place] [id number]
--- NOTE | ~2018-03-21 | EC ---
PATIENT:DANICA OWENS DATE OF SERVICE: 03/21/18 SEX: M MEDICAL RECORD: [id number] DATE OF : 36 LOCATION:D.M2 D.212 AGE OF PATIENT: 77 ADMISSION DATE: 03/21/18 REFERRING PHYSICIAN: INTERPRETING PHYSICIAN: ZACH LEONARDO MD ECHOCARDIOGRAM REPORT ECHO CHARGES 5 ECHO LIMITED Date: 03/22 CLINICAL DIAGNOSIS: PACER/LV FUNCTION POST PACER ECHOCARDIOGRAPHIC MEASUREMENTS (adult normal given) AC root (d.<3.7cm) cm LV Septum d (<1.2 cm> cm Valve Excursion cm LV Septum (systole) cm Left Atria (s.<4.0cm> 4.1 cm LVPW d(<1.2cm) cm RV (d.<2.3cm) cm LVPW (sytole) cm LV diastole(<5.6CM) 5.0 cm MV E-F(>70mm/sec) cm LV systole 3.8 cm LVOT Diameter cm MV exc.(>10mm) cm Est.ejection fraction (50-75%) % DOPPLER: LVIT cm/sec A cm/sec E cm/sec LA cm/sec RVSP 43 mmHg LVOT cm/sec AOP1/2T m/s Asc. Ao cm/sec RVOT cm/sec RA cm/sec PA cm/sec AV Gradient Peak mmHg AV Mean mmHg AV Area cm MV Gradient Peak mmHg MV Mean mmHg MV Area cm COMMENTS: Lay Brother: 2 ROXANNA MARRERO Mill Oiler: 3 Dr. Wheatley TAPE# PACS Pericardial Effusion N DATE OF SERVICE: Adequate 2D echo, color flow, spectral Doppler, M-mode This is a technically difficult limited study due to the patient's body habitus. Recent pacemaker placement. Grossly LVH appears present. LV internal dimensions are normal. Difficult to fully assess focal wall motion; however, from views present, estimated EF to be normal at 50% or better. Aortic valve sclerosis without stenosis by Doppler ECHOCARDIOGRAM REPORT [id number] DANICA OWENS interrogation. Left atrium is minimally dilated at 4.1 cm. Mitral valve shows no prolapse. Mild MR. Right-sided chamber is normal. Mild TR. TRANSINT:[id number] Voice Confirmation ID: [id number] DOCUMENT ID: [id number] ZACH LEONARDO MD at 1117 CC: [id number] DICTATION DATE: 03/22/18 1642 SPOUT LINER HELPER: 03/23/18 0104 DIS IN 03/23/18 [place] [id number] [place] [address]
--- NOTE | ~2018-03-21 | MORECARE ---
CASE MANAGEMENT DISCHARGE SUMMARY PATIENT: DANICA OWENS UNIT: [id number] ADM DATE: 03/21/18 AGE: 77 : 38 SEX: M ROOM/BED: D.2122 AUTHOR: CASE, VOCATIONAL NURSING INSTRUCTOR PHYSICIAN: REFERRING PHYSICIAN: LIDIA WEBB MD DATE OF SERVICE: 03/21/18 Discharge Plan Patient Name: DANICA OWENS [facility] [facility] 1940 Planned Disposition: Home Anticipated Discharge Date: 03/23/18 Discharge Date: Expected LOS: 2 Initial Reviewer: [email or web address] Initial Review Date: 03/21/2018 Generated: 03/21/18 6:26 pm Patient Name: DANICA OWENS Page [phone] All edits/amendments must be made on the electronic document DICTATION DATE: 03/21/181725 FIELD HANDYMAN: 03/21/181725 RPT#: [id number] CT DATE: STATUS: ADM IN [facility] [address] [place] [address] END OF REPORT
[2018-03-21 14:00] VITALS: BP 122/60
[2018-03-21 14:51] LABS: BASOPHILS 0.3 % (0-2); EOSINOPHILS 2.7 % (0-7); HEMATOCRIT 38.5 % (42.0-54.0); HEMOGLOBIN 13.1 g/dL (13.5-17.5); LYMPHOCYTES 11.8 % (15-50); MCH 32.4 pg (26.0-34.0); MCV 95.3 fL (80.0-100.0); MEAN PLATELET VOLUME 8.9 fL (7.4-10.4); MONOCYTES 9.4 % (2-11); NEUTROPHILS 75.8 % (40-80); RBC 4.04 10x6/uL (4.20-6.10); RDW 12.6 % (11.5-14.5); WBC 7.9 10x3/uL (4.8-10.8)
[2018-03-21 14:53] LABS: PLATELET COUNT 191 10x3/uL (130-400)
[2018-03-21 15:00] VITALS: BP 118/62
[2018-03-21 15:17] LABS: ALBUMIN 3.1 g/dL (3.4-5.0); ALKALINE PHOSPHATASE 79 U/L (46-116); ALT (SGPT) 16 U/L (10-68); BILIRUBIN - TOTAL 0.52 mg/dL (0.2-1.3); CALC OSMOLALITY 268 mosm/kg (275-300); CALCIUM 8.7 mg/dL (8.5-10.1); CARBON DIOXIDE 29.8 mmol/L (21.0-32.0); CHLORIDE - SERUM 97 mmol/L (98-107); CREATININE - SERUM 0.9 mg/dL (0.6-1.3); GLUCOSE 120 mg/dL (74-106); POTASSIUM - SERUM 3.6 mmol/L (3.5-5.1); PROTEIN - SERUM 6.7 g/dL (6.4-8.2); SODIUM 133 mmol/L (136-145); UREA NITROGEN 19 mg/dL (7-18); eGFR NON AFRICAN AMERICAN 86 mL/min (90-120)
[2018-03-21 15:31] LABS: CREATINE KINASE 41 UL (21-232)
[2018-03-21 15:34] LABS: TROPONIN-I < 0.017 ng/mL (0.000-0.060)
[2018-03-21 16:00] VITALS: BP 129/60
[2018-03-21 17:00] VITALS: BP 128/63
[2018-03-21 18:00] VITALS: BP 132/59
[2018-03-21] MEDS ORDERED: TENORMIN100 MG PO (19:06)
[2018-03-21] MEDS ORDERED: BIOTIN5 MG PO (19:07)
[2018-03-21] MEDS ORDERED: GLUCOPHAGE1000 MG PO (19:08)
[2018-03-21] MEDS ORDERED: TRIAMTERENE-HCT1 TA1 PO (19:09)
[2018-03-21] MEDS ORDERED: FOLIC ACID1 MG PO (19:10)
[2018-03-21 19:11] LABS: THYROID STIMULATING HORMONE 1.76 uIU/mL (0.36-3.74)
[2018-03-21] MEDS ORDERED: ZANAFLEX4 MG PO (19:12)
[2018-03-22] VITALS: BP 116/52
[2018-03-22 04:00] VITALS: BP 124/57
[2018-03-22 04:13] VITALS: BMI 23.6
[2018-03-22 05:37] LABS: BASOPHILS 0.2 % (0-2); HEMATOCRIT 39.6 % (42.0-54.0); HEMOGLOBIN 13.5 g/dL (13.5-17.5); IMMATURE GRANULOCYTES 0.1 % (0-5); LYMPHOCYTES 12.6 % (15-50); MCH 32.4 pg (26.0-34.0); MCHC 34.1 g/dL (31.0-37.0); MEAN PLATELET VOLUME 9.2 fL (7.4-10.4); MONOCYTES 9.1 % (2-11); PLATELET COUNT 223 10x3/uL (130-400); RBC 4.17 10x6/uL (4.20-6.10); RDW 12.8 % (11.5-14.5); WBC 8.3 10x3/uL (4.8-10.8)
[2018-03-22 06:26] LABS: CALC OSMOLALITY 270 mosm/kg (275-300); CALCIUM 9.1 mg/dL (8.5-10.1); CARBON DIOXIDE 28.6 mmol/L (21.0-32.0); CHLORIDE - SERUM 98 mmol/L (98-107); CKMB 1.1 U/L (0.0-3.6); CREATINE KINASE 41 UL (21-232); CREATININE - SERUM 0.8 mg/dL (0.6-1.3); GLUCOSE 113 mg/dL (74-106); MAGNESIUM - SERUM 1.9 mg/dL (1.8-2.4); POTASSIUM - SERUM 3.6 mmol/L (3.5-5.1); SODIUM 134 mmol/L (136-145); UREA NITROGEN 18 mg/dL (7-18); eGFR NON AFRICAN AMERICAN > 90 mL/min (90-120)
[2018-03-22 06:29] LABS: TROPONIN-I < 0.017 ng/mL (0.000-0.060)
[2018-03-22 07:44] VITALS: BP 137/59
[2018-03-22 08:21] VITALS: Ht 175.3 cm; Wt 72.6 kg
[2018-03-22 11:36] VITALS: BP 173/80
[2018-03-22 14:56] VITALS: BP 143/89
[2018-03-22 20:30] VITALS: BP 159/87
[2018-03-23 04:30] VITALS: BP 143/95
[2018-03-23 05:51] LABS: BASOPHILS 0.2 % (0-2); EOSINOPHILS 2.4 % (0-7); HEMOGLOBIN 13.6 g/dL (13.5-17.5); IMMATURE GRANULOCYTES 0.1 % (0-5); LYMPHOCYTES 11.7 % (15-50); MCH 32.9 pg (26.0-34.0); MCHC 34.9 g/dL (31.0-37.0); MCV 94.2 fL (80.0-100.0); MONOCYTES 8.8 % (2-11); NEUTROPHILS 76.8 % (40-80); PLATELET COUNT 230 10x3/uL (130-400); RBC 4.14 10x6/uL (4.20-6.10); RDW 12.4 % (11.5-14.5); WBC 9.4 10x3/uL (4.8-10.8)
[2018-03-23 06:05] LABS: CALC OSMOLALITY 260 mosm/kg (275-300); CALCIUM 8.4 mg/dL (8.5-10.1); CARBON DIOXIDE 28.3 mmol/L (21.0-32.0); CHLORIDE - SERUM 93 mmol/L (98-107); CREATININE - SERUM 0.7 mg/dL (0.6-1.3); GLUCOSE 120 mg/dL (74-106); POTASSIUM - SERUM 3.1 mmol/L (3.5-5.1); SODIUM 130 mmol/L (136-145); eGFR NON AFRICAN AMERICAN > 90 mL/min (90-120)
[2018-03-23 06:09] LABS: UREA NITROGEN 9 mg/dL (7-18)
[2018-03-23 07:55] VITALS: BP 184/96
[2018-03-23 11:33] VITALS: BP 172/95
[2018-03-23] MEDS ORDERED: NORVASC5 MG PO (14:20)
[2018-03-23 15:30] VITALS: BP 141/80
[2018-03-24] MEDS ORDERED: FUROSEMIDE20 MG PO (16:28)
== END 2018-03-23 16:25 | disposition home or self-care (01) | DRG 243 ==
LOC: D.ER 13:47 → D.M2 17:09
PROVIDERS: Family Medicine; Internal Medicine Interventional Cardiology; Internal Medicine Nephrology
PROC: 02H63JZ Insertion of Pacemaker Lead into Right Atrium, Percutaneous Approach (ICD-10-PCS; 2018-03-22)
PROC: 02HK3JZ Insertion of Pacemaker Lead into Right Ventricle, Percutaneous Approach (ICD-10-PCS; 2018-03-22)
PROC: 0JH606Z Insertion of Pacemaker, Dual Chamber into Chest Subcutaneous Tissue and Fascia, Open Approach (ICD-10-PCS; principal; 2018-03-22 09:45)
DX: I44.2 Atrioventricular block, complete (principal); J96.11 Chronic respiratory failure with hypoxia; E87.1 Hypo-osmolality and hyponatremia; C34.90 Malignant neoplasm of unspecified part of unspecified bronchus or lung; C79.31 Secondary malignant neoplasm of brain; I10 Essential (primary) hypertension; J44.9 Chronic obstructive pulmonary disease, unspecified; I25.10 Atherosclerotic heart disease of native coronary artery without angina pectoris; R73.03 Prediabetes; Z95.1 Presence of aortocoronary bypass graft; Z86.73 Personal history of transient ischemic attack (TIA), and cerebral infarction without residual deficits

== ENCOUNTER 2018-03-24 14:21 | Emergency (ER) | payer MEDICARE, BC ==
[~2018-03-24] VITALS: Ht 175.3 cm; Wt 72.6 kg
[~2018-03-24 14:21] MED LIST changes: +FOLIC ACID1 MG PO
[2018-03-24 14:24] VITALS: Ht 175.3 cm; Wt 72.6 kg
[2018-03-24 14:51] LABS: BASOPHILS 0.1 % (0-2); EOSINOPHILS 2.5 % (0-7); HEMATOCRIT 40.4 % (42.0-54.0); HEMOGLOBIN 14.4 g/dL (13.5-17.5); IMMATURE GRANULOCYTES 0.2 % (0-5); MCH 32.9 pg (26.0-34.0); MCHC 35.6 g/dL (31.0-37.0); MEAN PLATELET VOLUME 8.9 fL (7.4-10.4); MONOCYTES 9.6 % (2-11); NEUTROPHILS 75.6 % (40-80); PLATELET COUNT 206 10x3/uL (130-400); RBC 4.38 10x6/uL (4.20-6.10); RDW 12.3 % (11.5-14.5); WBC 8.4 10x3/uL (4.8-10.8)
[2018-03-24 14:52] LABS: MCV 92.2 fL (80.0-100.0)
[2018-03-24 15:16] LABS: ALBUMIN 3.3 g/dL (3.4-5.0); ALKALINE PHOSPHATASE 94 U/L (46-116); ALT (SGPT) 16 U/L (10-68); BILIRUBIN - TOTAL 0.92 mg/dL (0.2-1.3); CALC OSMOLALITY 249 mosm/kg (275-300); CALCIUM 8.7 mg/dL (8.5-10.1); CARBON DIOXIDE 30.9 mmol/L (21.0-32.0); CHLORIDE - SERUM 87 mmol/L (98-107); CREATININE - SERUM 0.8 mg/dL (0.6-1.3); GLUCOSE 122 mg/dL (74-106); POTASSIUM - SERUM 3.5 mmol/L (3.5-5.1); PROTEIN - SERUM 7.1 g/dL (6.4-8.2); SODIUM 124 mmol/L (136-145); UREA NITROGEN 9 mg/dL (7-18); eGFR NON AFRICAN AMERICAN > 90 mL/min (90-120)
[2018-03-24 15:17] LABS: CKMB 2.4 U/L (0.0-3.6); CREATINE KINASE 77 UL (21-232); PRO BNP 1379 pg/mL (0-450); TROPONIN-I 0.023 ng/mL (0.000-0.060)
[2018-03-24] MEDS ORDERED: FUROSEMIDE20 MG PO (16:28)
[2018-03-24 16:35] VITALS: BP 138/83
== END 2018-03-24 17:30 | disposition home or self-care (01) ==
LOC: D.ER 14:21
PROVIDERS: Family Medicine
DX: J81.0 Acute pulmonary edema (principal); Z95.0 Presence of cardiac pacemaker; Z86.73 Personal history of transient ischemic attack (TIA), and cerebral infarction without residual deficits; E11.9 Type 2 diabetes mellitus without complications; I10 Essential (primary) hypertension

== ENCOUNTER 2018-08-03 21:22 | Inpatient (IN) | payer MEDICARE, BC ==
[~2018-08-03] VITALS: Ht 175.3 cm; Wt 79.5 kg
[~2018-08-03 21:22] MED LIST changes: +FUROSEMIDE20 MG PO
[2018-08-03 22:46] LABS: BASOPHILS 0.3 % (0-2); HEMATOCRIT 37.4 % (42.0-54.0); HEMOGLOBIN 12.4 g/dL (13.5-17.5); IMMATURE GRANULOCYTES 0.1 % (0-5); LYMPHOCYTES 8.2 % (15-50); MCH 31.5 pg (26.0-34.0); MCHC 33.2 g/dL (31.0-37.0); MCV 94.9 fL (80.0-100.0); MEAN PLATELET VOLUME 8.6 fL (7.4-10.4); MONOCYTES 10.2 % (2-11); NEUTROPHILS 76.2 % (40-80); RBC 3.94 10x6/uL (4.20-6.10); RDW 12.6 % (11.5-14.5)
[2018-08-03 22:47] LABS: PLATELET COUNT 320 10x3/uL (130-400)
[2018-08-03 22:52] VITALS: BP 125/69
[2018-08-03 22:56] LABS: ALBUMIN 2.8 g/dL (3.4-5.0); ANION GAP 14.5 mmol/L (8-16); BILIRUBIN - TOTAL 0.19 mg/dL (0.2-1.3); CALCIUM 8.9 mg/dL (8.5-10.1); CREATININE - SERUM 1.2 mg/dL (0.6-1.3); POTASSIUM - SERUM 3.5 mmol/L (3.5-5.1); PROTEIN - SERUM 7.5 g/dL (6.4-8.2)
[2018-08-03 23:02] LABS: MAGNESIUM - SERUM 1.6 mg/dL (1.8-2.4); TROPONIN-I 0.046 ng/mL (0.000-0.060)
[2018-08-04] VITALS (8 sets, daily range): BP systolic 101–144; BP diastolic 57–90; Ht 175.3 cm; Wt 79.5 kg
[2018-08-04 11:01] LABS: BASOPHILS 0.2 % (0-2); EOSINOPHILS 5.2 % (0-7); HEMATOCRIT 39.3 % (42.0-54.0); HEMOGLOBIN 13.2 g/dL (13.5-17.5); IMMATURE GRANULOCYTES 0.2 % (0-5); LYMPHOCYTES 6.8 % (15-50); MCH 31.7 pg (26.0-34.0); MCHC 33.6 g/dL (31.0-37.0); MCV 94.5 fL (80.0-100.0); MEAN PLATELET VOLUME 8.6 fL (7.4-10.4); MONOCYTES 7.3 % (2-11); NEUTROPHILS 80.3 % (40-80); PLATELET COUNT 322 10x3/uL (130-400); RBC 4.16 10x6/uL (4.20-6.10); RDW 12.8 % (11.5-14.5); WBC 8.5 10x3/uL (4.8-10.8)
[2018-08-04 11:22] LABS: ANION GAP 12.6 mmol/L (8-16); CALCIUM 9.1 mg/dL (8.5-10.1); CARBON DIOXIDE 29.5 mmol/L (21.0-32.0); CREATININE - SERUM 1.1 mg/dL (0.6-1.3); POTASSIUM - SERUM 3.1 mmol/L (3.5-5.1)
== END 2018-08-04 13:00 | disposition short-term general hospital (02) | DRG 193 ==
LOC: D.ER 21:22 → D.EDHOLD 08-04 02:35
PROVIDERS: Emergency Medicine; Internal Medicine Nephrology
DX: J18.9 Pneumonia, unspecified organism (principal); J96.21 Acute and chronic respiratory failure with hypoxia; C34.91 Malignant neoplasm of unspecified part of right bronchus or lung; C78.2 Secondary malignant neoplasm of pleura; C79.31 Secondary malignant neoplasm of brain; N17.9 Acute kidney failure, unspecified; J44.0 Chronic obstructive pulmonary disease with (acute) lower respiratory infection; I10 Essential (primary) hypertension; E78.5 Hyperlipidemia, unspecified; E11.9 Type 2 diabetes mellitus without complications; I25.10 Atherosclerotic heart disease of native coronary artery without angina pectoris; D64.9 Anemia, unspecified; E83.42 Hypomagnesemia; Z95.1 Presence of aortocoronary bypass graft; Z95.0 Presence of cardiac pacemaker; Z87.891 Personal history of nicotine dependence

== ENCOUNTER → 2019-08-25 10:44 | Outpatient (CLI) | payer MEDICARE, BC ==
[2018-08-04 09:48] VITALS: BMI 25.9
== END | disposition home or self-care (01) ==
LOC: D.HCCECHO 10:44
PROVIDERS: ATTEND Internal Medicine Cardiovascular Disease
DX: I10 Essential (primary) hypertension (principal)

== ENCOUNTER → 2019-10-14 10:36 | Outpatient (CLI) | payer MEDICARE, BC ==
[2018-08-04 09:48] VITALS: BMI 25.9
== END | disposition home or self-care (01) ==
LOC: D.HCCARDIO 10:36
PROVIDERS: ATTEND Internal Medicine Cardiovascular Disease
DX: I25.810 Atherosclerosis of coronary artery bypass graft(s) without angina pectoris (principal)

== ENCOUNTER 2019-11-04 10:20 | Outpatient (CLI) | payer MEDICARE, BC ==
[~2019-11-04] VITALS: Ht 175.3 cm; Wt 75.6 kg
--- NOTE | ~2019-11-04 | HEMODYNAMI ---
PATIENT:DANICA OWENS MEDICAL RECORD: [id number] : 36 LOCATION:D.CAT ADMISSION DATE: 11/04/19 Generatedon:11/04/201913:49 Patient name: DANICA OWENS Patient #: [id number] SSN: [id number] : 1940 Date of study: 11/04/2019 Page: Of Hemodynamic Procedure Report Patient Data Patient Demographics Procedure consent was obtained First Name: DANICA Gender: Male Last Name: ROMAN : 1940 Middle Initial: R Age: 79 year(s) Patient #: [id number] Race: SSN: [id number] Additional ID: [id number] Contact details Address: [address] [place] [address] State: [place] City: [place] Zip code: [address] Past Medical History Allergies Allergen Reaction Date Comments Reported Other allergy 03/22/2018 Iodinated Contrast. PCN Other allergy 11/04/2019 pcn, contrast Admission Admission Data Admission Date: 11/04/2019 Admission Time: 10:20 Arrival Date: 11/04/2019 Arrival Time: 0:00 Admit Source: Other Insurance Payor: Medicare [facility] #: [id number] Height (in.): 68.9 BSA: 1.91 (m2) Height (cm.): 175 BMI: 24.82 (kg/m2) Weight (lbs.): 167.55 Weight (kg.): 76 Lab Results Lab Result Date: 11/04/2019 Lab Result Time: 0:00 Biochemistry Name Units Result Min Max BUN mg/dl 26 --(----)-* 7 18 Creatinine mg/dl 1.2 --(---*)-- 0.6 1.3 eGFR ml/min 61.66904 *-(----)-- 90 120 NONAFRICAN Procedure Procedure Types Cath Procedure Diagnostic Procedure LHC LHC w/Coronaries w/Grafts Sedation Charges Moderate Sedation up to 15 minutes Procedure Description Procedure Date Procedure Date: 11/04/2019 Procedure Start Time: 13:13 Procedure End Time: 13:47 Procedure Staff Name Function Bladimir Herndon MD Performing Physician Reta Gaitan RT Monitor Patty Mills RN Nurse Patricia Joseph RT Scrub Procedure Data Cath Procedure Fluoroscopy Diagnostic fluoroscopy Total fluoroscopy Time: 8.4 time: 8.4 min min Diagnostic fluoroscopy Total fluoroscopy dose: dose: 1138 mGy 1138 mGy Contrast Material Contrast Material Type Amount (ml) Isovue 300 146 Entry Location Entry Primary Successful Side Size Upsize Upsize Entry Closure Succes sful Closure Location (Fr) 1 (Fr) 2 (Fr) Remarks Device Remarks Femoral Left 5 Fr Exoseal artery Estimated blood loss: 10 ml Diagnostic catheters Device Type Used For End Catheter Placement MULTIPACK JL 4.0 5Fr Procedure catheter DIAGNOSTIC AR MOD 5Fr Procedure Catheter ([id number]) DIAGNOSTIC IM 5Fr Procedure catheter ([id number]) MULTIPACK Pigtail 5 Fr Ventriculography catheter Procedure Complications No complications Procedure Medications Medication Administration Route Dosage Oxygen etCO2 Nasal cannula 2 l/min Lidocaine 2% added to field 20 Heparin Flush Bag added to field 2 bags (1000units/500ml NS) 0.9% NaCl I.V. 100 ml/hr Versed I.V. 1 mg Fentanyl I.V. 50 mcg Versed I.V. 1 mg Fentanyl I.V. 50 mcg Hemodynamics Rest BSA: 1.91 (m2) O2 Consumption: Estimated: 219.67 (ml/min) O2 Consumption indexed : Estimated:115.01 (ml/min/m) Heart Rate: 72 (bpm) Pressure Samples Time Site Value (mmHg) Purpose Heart Use Rate(bpm) 13:41 LV 146/18,32 Snapshot 76 Gradients Valve Time Site Site Mean SEP/DFP Peak To Heart Use 1 2 (mmHg) (sec/min) Peak Rate (mmHg) (bpm) Aortic 13:42 LV AO 75 Snapshots Pre Cath Intra NCS Post Cath Vital Signs Time Heart Resp SPO2 etCO2 NIBP (mmHg) Rhythm Pain Sedation Rate (ipm) (%) (mmHg) Status Level (bpm) 13:02:22 72 13 96 28.5 143/88(119) NSR 0 (11) 10(A) , No pain 13:06:38 71 19 92 30.7 136/86(118) NSR 0 (11) 10(A) , No pain 13:10:56 72 22 93 32.3 140/82(108) NSR 0 (11) 10(A) , No pain 13:15:15 75 16 96 9.7 155/85(119) NSR 0 (11) 9(A) , No pain 13:19:26 73 15 95 30 141/89(115) NSR 0 (11) 9(A) , No pain 13:23:45 74 14 97 34.5 152/78(120) NSR 0 (11) 9(A) , No pain 13:28:05 76 17 96 0 143/78(108) NSR 0 (11) 9(A) , No pain 13:32:23 73 15 95 33 134/80(109) NSR 0 (11) 9(A) , No pain 13:36:39 74 20 96 33 138/77(113) NSR 0 (11) 9(A) , No pain 13:40:45 79 18 95 0 108/74(90) NSR 0 (11) 10(A) , No pain 13:45:40 77 20 94 31.5 141/81(113) NSR 0 (11) 10(A) , No pain Medications Time Medication Route Dose Verified Delivered Reason Notes Eff ectiveness by by 13:04:57 Oxygen etCO2 2 Bladimir Buffie used for Nasal l/min Yanick Mills RN procedure cannula 13:05:06 Lidocaine 2% added 20ml Bladimir Bladimir for local to vial Yanick Herndon MD anesthetic field 13:05:14 Heparin Flush added 2 Bladimir Bladimir used for Bag to bags Yanick Herndon MD procedure (1000units/500ml field NS) 13:05:22 0.9% NaCl I.V. 100 Bladimir Buffie Per ml/hr Yanick Mills RN physician 13:07:25 Versed I.V. 1 mg Bladimir Buffie for Yanick Mills RN sedation 13:07:32 Fentanyl I.V. 50 Bladimir Buffie for mcg Yanick Mills RN sedation 13:19:27 Versed I.V. 1 mg Bladimir Buffie for Yanick Mills RN sedation 13:19:31 Fentanyl I.V. 50 Bladimir Buffie for mcg Yanick Mills RN sedation Procedure Log Time Note 12:42:54 Informed consent obtained and on chart 12:44:03 Procedure Status Elective Heart Cath (OP). 12:44:07 Time tracking: Regular hours (M-F 7:00 - 5:00) 12:44:17 Arrival Date: 11/04/2019 12:00:00 AM 12:44:40 Admit Source: Other 12:44:43 Insurance Payor : Medicare 12:46:09 Patient Height : 68.9 inches 12:46:15 Patient Weight : 167.55 lbs 12:50:30 Lab Result : eGFR NONAFRICAN 61.81887 ml/min 12:50:30 Lab Result : Creatinine 1.2 mg/dl 12:50:30 Lab Result : BUN 26 mg/dl 12:50:39 Patty Mills RN sent for patient. Start room use. 13:01:06 Plan of Care:Hemodynamics will remain stable., Cardiac rhythm will remain stable., Comfort level will be maintained., Respiratory function will remain adequate., Patient/ family verbilizes understanding of procedure., Procedure tolerated without complication., Recovers from procedure without complications.. 13:01:13 Patient received from Pre/Post Procedure Room to CCL 1 Alert and oriented. Tansferred to table in Supine position. 13:01:16 Warm blankets applied, and jose luis hugger turned on for patient comfort. 13:01:16 Correct patient and procedure confirmed by team. 13:01:17 ECG and BP/O2 sat monitors applied to patient. 13:01:18 Vital chart was started 13:01:19 Baseline sample Acquired. 13:01:23 Full Disclosure recording started 13:01:37 H&P Date Dictated: 10/13/2019 Within 30 days and on chart.. 13:01:39 Pre-procedure instructions explained to patient. 13:01:42 Family in waiting room. 13:01:43 Patient NPO since Midnight. 13:02:00 Patient allergic to Other allergypcn, contrast 13:02:03 Is the patient allergic to Iodine/contrast media? Yes. 13:02:04 Was the patient premedicated? Yes 13:02:06 Is patient on blood thinner?No 13:02:10 Patient diabetic? No. 13:02:21 Snore? Yes 13:02:23 Sleep apnea? Yes 13:02:30 Dentures? Yes ? 13:02:39 IV patent on arrival in left forearm with 0.9% NaCl at O. 13:02:50 Lab results completed and on chart. 13:03:25 Stress Test: yes; abnormal inferior apical 13:03:34 Right groin area was prepped with chlora-prep and draped in sterile fashion 13:03:35 Alarms reviewed by R. N. 13:03:36 Sharps counted by scrub and verified by R.N. 13:04:57 Oxygen 2 l/min etCO2 Nasal cannula was administered by Patty Mills RN; used for procedure; Verbal order read back and verified. 13:05:06 Lidocaine 2% 20ml vial added to field was administered by Bladimir Herndon MD; for local anesthetic; Verbal order read back and verified. 13:05:14 Heparin Flush Bag (1000units/500ml NS) 2 bags added to field was administered by Bladimir Herndon MD; used for procedure; Verbal order read back and verified. 13:05:22 0.9% NaCl 100 ml/hr I.V. was administered by Patty Mills RN; Per physician; Verbal order read back and verified. 13:07:05 Physician arrived 13:07:05 --------ALL STOP TIME OUT------ 13:07:06 Final Timeout: patient, procedure, and site verified with staff and physician. All members of the team are in agreement. 13:07:08 Right groin site verified by team. 13:07:13 Fire Safety Assessment: A--An alcohol-based skin anteseptic being used preoperatively., C--Open oxygen or nitrous oxide is being used., D--An ESU, laser, or fiber-optic light is being used. 13:07:16 Physical assessment completed. ASA score P 3 - A patient with severe systemic disease as per Bladimir Herndon MD. 13:07:22 1) 90+ Normal kidney functon but urine findings or structural abnormalities or genetic trait point to kidney disease. 13:07:25 Versed 1 mg I.V. was administered by Patty Mills RN; for sedation; Verbal order read back and verified. 13:07:30 Maximum allowable contrast dose (3.7 X eGFR X 0.75)172 ml. 13:07:32 Fentanyl 50 mcg I.V. was administered by Buffie Mills RN; for sedation; Verbal order read back and verified. 13:07:35 Sedation plan: IV Moderate Sedation Medication:Versed, Fentanyl 13:09:36 Zero performed for pressure channel P1 13:09:43 Zero performed for pressure channel P1 13:13:28 Use device set Femoral Dx 13:13:32 Procedure started. 13:13:43 Local anesthetic to right femoral artery with Lidocaine 2% by Bladimir Herndon MD.INITIAL ACCESS ONLY 13:13:45 ACIST Syringe (95929) opened to sterile field. 13:13:46 Bag Decanter (2002S) opened to sterile field. 13:13:46 Medline Cath Pack ([id number]) opened to sterile field. 13:13:48 ACIST Hand Control (26319) opened to sterile field. 13:13:48 ACIST Manifold (41299) opened to sterile field. 13:13:49 DIAGNOSTIC Multipack 5Fr catheter set ([id number]) opened to sterile field. 13:13:51 Tegaderm 4 x 4 (1626W) opened to sterile field. 13:13:53 SHEATH 5FR [place] (UBW242) opened to sterile field. 13:13:55 EMERALD Guide Wire (503-398) opened to sterile field. 13:19:14 Local anesthetic to left femerol artery with Lidocaine 2% by Bladimir Herndon MD.ADDITIONAL ACCESS 13:19:27 Versed 1 mg I.V. was administered by Patty Mills RN; for sedation; Verbal order read back and verified. 13:19:31 Fentanyl 50 mcg I.V. was administered by Patty Mills RN; for sedation; Verbal order read back and verified. 13:23:36 A 5 Fr sheath was inserted into the Left Femoral artery 13:23:43 J wire advanced. 13:24:37 A MULTIPACK JL 4.0 5Fr catheter was advanced over the wire and used for Procedure. 13:25:11 LCA angiography performed. 13:27:08 Catheter removed. 13:27:15 A DIAGNOSTIC AR MOD 5Fr Catheter ([id number]) was advanced over the wire and used for Procedure. 13:28:24 RCA angiography performed. 13:28:47 SVG to RCA occluded. 13:29:25 SVG to OM angiography performed. 13:34:30 SVG to LAD angiography performed. 13:34:57 Catheter removed. 13:35:19 A DIAGNOSTIC IM 5Fr catheter ([id number]) was advanced over the wire and used for Procedure. 13:38:21 meyers not used to graft 13:38:25 Catheter removed. 13:38:38 A MULTIPACK Pigtail 5 Fr catheter was advanced over the wire and used for Ventriculography. 13:38:45 EXOSEAL 5Fr (EX500) opened to sterile field. 13:40:13 Aortic Root visualized 13:41:41 LV gram done using ABBOTT 13:41:43 LV hemodynamics recorded. 13:42:04 EF : 35 % 13:42:07 Catheter removed. 13:43:00 Sheath removed intact; hemostasis achieved with Exoseal to the Left Femoral artery. 13:43:18 Procedure ended.(Physican Out) 13:43:28 Fluoroscopy time 08.40 minutes. 13:43:33 Fluoroscopy dose: 1138 mGy 13:43:33 Flurop Dose total: 1138 13:43:39 Dose Area Product 61238 mGy/cm. 13:43:44 Contrast amount:Isovue 300 146ml. 13:44:23 Post right femoral artery:stable 13:44:49 Post procedure: left femoral pulse 3+ Increased pulse; moderate pressure to obliterate. 13:45:12 Post-procedure physical assessment completed. ASA score P 2 - A patient with mild systemic disease as per Bladimir Herndon MD. 13:45:16 Post procedure rhythm: sinus rhythm 13:45:19 Estimated blood loss: 10 ml 13:45:21 Post procedure instruction explained to patient.Patient verbalizes understanding. 13:45:45 Procedure type changed to Cath procedure, Diagnostic procedure, LHC, C w/Coronaries w/Grafts, Sedation Charges, Moderate Sedation up to 15 minutes 13:45:47 Procedure and supply charges have been captured, reviewed, submitted and are correct. 13:46:37 Procedure Complication : No complications 13:46:43 Vital chart was stopped 13:46:46 [facility] Findings: mild to moderate CAD (<70%) 13:46:48 Operative report dictated upon procedure completion. 13:46:49 Operative report dictated upon procedure completion. 13:46:51 See physician's report for complete and final results. 13:46:54 Report given to Pre/Post Procedure Room. 13:46:58 Patient transfered to Pre/Post Procedure Room with Stretcher. 13:47:00 Procedure ended. 13:47:00 Full Disclosure recording stopped 13:47:04 End room use (Document Last) 13:47:54 End room use (Document Last) 13:48:59 End room use (Document Last) Device Usage Item Name Manufacture Quantity Catalog Hospital Part Current Minimal L ot# / Number Charge Number Stock Stock Serial# Code ACIST Acist 1 54494 [id number] 909536 221880 20 Syringe Medical (46557) Systems Inc Bag Microtek 1 2001S 989382 90847 278839 5 Decanter Medical Inc. () Medline Medline 1 [id number] 821951 62302 386354 5 Cath Pack ([id number]) ACIST Hand Acist 1 07612 909525 614005 435963 5 Control Medical (47888) Systems Inc ACIST Acist 1 22720 959974 210177 311637 5 Manifold Medical (57434) Systems Inc DIAGNOSTIC Cardinal 1 [id number] 351451 22053 278291 30 Multipack Health 5Fr catheter set ([id number]) Tegaderm 4 3M 1 1626W 459962 351162 595088 5 x 4 (1626W) SHEATH 5FR Terumo 1 [id number] 837765 496518 824008 5 [place] (QVA638) EMERALD Cardinal 1 502-455 789179 224082 896026 5 Guide Wire Health (502-455) MULTIPACK Cardinal 1 684145 5 JL 4.0 5Fr Health catheter DIAGNOSTIC Cardinal 1 [id number] 666142 486646 485960 15 AR MOD 5Fr Health Catheter ([id number]) DIAGNOSTIC Cardinal 1 [id number] 677013 645608 547924 5 IM 5Fr Health catheter ([id number]) MULTIPACK Cardinal 1 240283 5 Pigtail 5 Health Fr catheter EXOSEAL 5Fr Cardinal 1 EX500 582228 948373 761161 10 (EX500) Health Signature Audit [place] Stage Time Signature Unsigned Intra-Procedure 11/04/2019 Reta Gaitan 1:47:54 PM RT(R) Intra-Procedure 11/04/2019 Patty Mills RN 1:48:59 PM Intra-Procedure 11/04/2019 Bladimir Herndon MD 1:49:[address] [place] [address]
[2019-11-04] MEDS ORDERED: PROTONIX40 MG PO (11:16)
[2019-11-04] MEDS ORDERED: COREG 3.1253.125 MG PO (11:17)
[2019-11-04] MEDS ORDERED: PREDNISONE2.5 MG PO (11:17)
[2019-11-04] MEDS ORDERED: TRELEGY (11:18)
[2019-11-04 11:44] VITALS: BP 137/77; Ht 175.3 cm; Wt 75.6 kg
[2019-11-04 12:07] LABS: ANION GAP 11.7 mmol/L (8-16); CALCIUM 9.4 mg/dL (8.5-10.1); CARBON DIOXIDE 28.9 mmol/L (21.0-32.0); CHOL - HDL RATIO 3.5 ratio (2.3-4.9); CREATININE - SERUM 1.2 mg/dL (0.6-1.3); LDL-HDL RATIO 2.1 ratio (1.5-3.5); POTASSIUM - SERUM 3.6 mmol/L (3.5-5.1)
[2019-11-04 13:00] LABS: HEMATOCRIT 43.5 % (42.0-54.0); HEMOGLOBIN 14.4 g/dL (13.5-17.5); MCH 32.5 pg (26.0-34.0); MCHC 33.1 g/dL (31.0-37.0); MCV 98.2 fL (80.0-100.0); MEAN PLATELET VOLUME 9.1 fL (7.4-10.4); RBC 4.43 10x6/uL (4.20-6.10); RDW 12.2 % (11.5-14.5); WBC 6.3 10x3/uL (4.8-10.8)
[2019-11-04 13:02] LABS: PLATELET COUNT 235 10x3/uL (130-400)
[2019-11-04 13:04] LABS: BASOPHILS 0.8 % (0-2); EOSINOPHILS 3.5 % (0-7); IMMATURE GRANULOCYTES 0.3 % (0-5); LYMPHOCYTES 13.8 % (15-50); MONOCYTES 6.7 % (2-11); NEUTROPHILS 74.9 % (40-80)
--- NOTE | 2019-11-04 14:00 | NUR ---
PT RECEIVED VIA STRETCHER FROM FITTING ROOM OPERATOR FOR RECOVERY. PT DROWSY BUT VERALLY AROUSABLE. PT DENIES PAIN OR DISCOMFORT AT THIS TIME. PT PLACED ON CARDIAC MONITORS AND O2 VIA NC AT 2L. HR PACED AT 76, BP 140/72, RR 17, SAT 97. L GROIN SOFT, DRESSING CDI NO S/S HEMATOMA. LEG PINK AND WARM, PEDAL PULSES PALPABLE. PT INSTRUCTED TO KEEP HEAD ON PILLOW AND LEG STRAIGHT, HE VERBALIZED UNDERSTANDING. CALL LIGHT IN REACH, AT BEDSIDE.
--- NOTE | 2019-11-04 14:30 | NUR ---
DR TAN AT , NO NEW ORDERS. HE DISCUSSED PROCEDURE RESULTS AND PLAN OF CARE WITH PT AND . L GROIN SOFT, DRESSING REMAINS CDI NO S/S HEMATOMA. VSS. CALL LIGHT IN REACH. PT DENIES NEEDS AT THIS TIME.
--- NOTE | 2019-11-04 15:15 | NUR ---
PT RESTING COMFORTABLY HOB ELEVATED. L GROIN SOFT, DRESSING REMAINS CDI NO S/S HEMATOMA. VSS. CALL LIGHT IN REACH, AT BEDSIDE.
--- NOTE | 2019-11-04 15:51 | NUR ---
L GROIN SOFT, DRESSING CDI NO S/S HEMATOMA. DISCHARGE INSTRUCTIONS REVIEWED W PT AND , BOTH VERBALIZED UNDERSTANDING. IV REMOVED W CATH INTACT, MONITORS AND O2 REMOVED. PT UP TO DRESS FOR DISCHARGE W ASSIST FROM .
--- NOTE | 2019-11-04 16:13 | NUR ---
PT VOIDED W/O DIFFICULITY IN URINAL. PT DISCHARGED VIA WC TO WAITING IN PRIVATE VEHICLE. PT HAD ALL BELONGINGS AND DISCHARGE INFORMATION.
== END 2019-11-04 16:14 | disposition home or self-care (01) ==
LOC: D.CATH 10:20
PROVIDERS: ATTEND Internal Medicine Cardiovascular Disease
DX: I25.119 Atherosclerotic heart disease of native coronary artery with unspecified angina pectoris (principal); R94.30 Abnormal result of cardiovascular function study, unspecified; E11.9 Type 2 diabetes mellitus without complications; I10 Essential (primary) hypertension; Z95.0 Presence of cardiac pacemaker; Z95.1 Presence of aortocoronary bypass graft; I34.0 Nonrheumatic mitral (valve) insufficiency; I42.9 Cardiomyopathy, unspecified

== ENCOUNTER → 2020-12-19 14:22 | Outpatient (CLI) | payer MEDICARE, BC ==
[2019-11-04 11:44] VITALS: BMI 24.6
[~2020-12-19 14:22] MED LIST changes: +COREG 3.1253.125 MG PO; +PREDNISONE2.5 MG PO; +TRELEGY
== END | disposition home or self-care (01) ==
LOC: D.LAB 14:22
PROVIDERS: ATTEND Internal Medicine Pulmonary Disease
DX: Z11.52 Encounter for screening for COVID-19 (principal)

== ENCOUNTER → 2020-12-22 11:02 | Outpatient (CLI) | payer MEDICARE, BC ==
[2019-11-04 11:44] VITALS: BMI 24.6
== END | disposition home or self-care (01) ==
LOC: D.RT 11:02 → D.RAD 12:30 → D.LAB 12:30 → D.RT 13:00
PROVIDERS: ATTEND Internal Medicine Pulmonary Disease
DX: J44.9 Chronic obstructive pulmonary disease, unspecified (principal)